=== PATIENT | male | born 2000 | race Caucasian/White ===

== ENCOUNTER 2022-09-21 08:18 | Emergency (ER) | payer OTHER ==
[~2022-09-21] VITALS: Ht 157.5 cm; Wt 72.6 kg
[2022-09-21 08:57] VITALS: BP 109/73
--- NOTE | 2022-09-21 09:49 | NUR ---
PATIENT BIB [place] [employer]. PATIENT EXAMINED BY DR. RICE. PATIENT MEDICALLY CLEARED AND RELEASED IN CUSTODY IN STABLE CONDITION. ORIGINAL PRE-BOOK FORM GIVEN TO OFFICER VIJAYA [id number].
== END 2022-09-21 09:49 ==
LOC: MED 08:18
DX: Z02.89 Encounter for other administrative examinations (principal); Z91.013 Allergy to seafood; V49.9XXA Car occupant (driver) (passenger) injured in unspecified traffic accident, initial encounter; Y93.89 Activity, other specified; Y92.410 Unspecified street and highway as the place of occurrence of the external cause; Y99.8 Other external cause status
CPT/HCPCS: 99283